=== PATIENT | male | born 1990 | race Caucasian/White ===

== ENCOUNTER 2016-10-03 04:51 | Emergency (ER) | payer OTHER ==
[2016-10-03] MEDS ORDERED: ONDANSETRON 4 MG/2 ML VIAL IVPUSH ONE (05:18)
[2016-10-03] MEDS ORDERED: morphine CARPU-JECT 4 MG/1 ML DISP.SYRIN IVPUSH ONE (05:18)
[2016-10-03] MEDS ORDERED: SODIUM CHLORIDE 1,000 ML IV ONE (05:18)
--- NOTE | 2016-10-03 09:19 | PDOC ---
Medical Decision Making - Medical Decision Making Initial HPI, A/P was done on a paper chart. The patient is now awake, shoulder has been reduced and he is well enough to be discharged to home. *DC/Admit/Observation/Transfer Diagnosis at time of Disposition: Dislocation of shoulder region Qualifiers: Encounter type: initial encounter Laterality: left Qualified Code(s): S43.005A - Unspecified dislocation of left shoulder joint, initial encounter - Discharge Dispostion Disposition: HOME Condition at time of disposition: Improved - Patient Instructions Printed Discharge Instructions: DI for Shoulder Dislocation Additional Instructions: Discharge Instructions: -Return to the ER with any worsening or concerning symptoms
[2016-10-03 09:39] VITALS: BP 137/65; PULSE 75
== END 2016-10-03 09:39 | disposition home or self-care (01) ==
LOC: JER 04:51
PROC: 0RSKXZZ Reposition Left Shoulder Joint, External Approach (ICD-10-PCS; principal; 2016-10-03)
PROC: 3E0337Z Introduction of Electrolytic and Water Balance Substance into Peripheral Vein, Percutaneous Approach (ICD-10-PCS; 2016-10-03)
PROC: 3E033NZ Introduction of Analgesics, Hypnotics, Sedatives into Peripheral Vein, Percutaneous Approach (ICD-10-PCS; 2016-10-03)
PROC: 3E033NZ Introduction of Analgesics, Hypnotics, Sedatives into Peripheral Vein, Percutaneous Approach (ICD-10-PCS; 2016-10-03)
DX: M24.312 Pathological dislocation of left shoulder, not elsewhere classified (principal)
CPT/HCPCS: 23650; 73030-TC-LT; 96361; 96374; 96375; 99281-25

== ENCOUNTER 2016-10-10 11:22 | Day surgery (SDC) | payer OTHER ==
[2016-10-03 14:34] VITALS: BMI 23.6
[2016-10-10] MEDS ORDERED: MIDAZOLAM HCL 2 MG/2 ML SINGLE DOSE VIAL ONE ×4 (11:32→13:00)
[2016-10-10] MEDS ORDERED: PROPOFOL 20 ML ONE (11:33)
[2016-10-10] MEDS ORDERED: DEXAMETHASONE SOD PHOSPHATE/PF 10 MG/ML SDV ONE (11:58)
[2016-10-10] MEDS ORDERED: ROPIVACAINE HCL 0.5% 30ML VIAL ONE (11:59)
[2016-10-10] MEDS ORDERED: ceFAZolin SODIUM 1 GM VIAL ONE (13:01)
[2016-10-10] MEDS ORDERED: ONDANSETRON 4 MG/2 ML VIAL IVPUSH PRN (13:17)
[2016-10-10] MEDS ORDERED: oxyCODONE HCL 5 MG TABLET PO PRN ×2 (13:17)
[2016-10-10] MEDS ORDERED: LACTATED RINGERS SOLUTION 1,000 ML IV SCH (13:30)
[2016-10-10] MEDS ORDERED: oxyCODONE HCL 5 MG TABLET ONE (15:29)
[2016-10-10 15:52] VITALS: PULSE 76
[2016-10-10 16:06] VITALS: BP 121/65; TEMP 98
--- NOTE | 2016-10-11 10:35 | OP ---
DATE OF OPERATION: 10/10/2016 PREOPERATIVE DIAGNOSIS: Left shoulder recurrent instability. POSTOPERATIVE DIAGNOSES: 1. Left shoulder recurrent instability. 2. Left shoulder extensive anterior-inferior glenoid labrum tear. 3. Left shoulder superior labral anterior-posterior tear. 4. Left shoulder loose body. 5. Left shoulder partial rotator cuff tear. OPERATIVE PROCEDURE: 1. Left shoulder anterior labral repair with capsulorrhaphy and anterior-superior capsular shift. 2. Left shoulder superior labral anterior-posterior tear repair, arthroscopic. 3. Left shoulder excision of loose body. 4. Left shoulder arthroscopic debridement of rotator cuff tear. SURGEON: Ismael Mehta MD CLOTH WINDING SUPERVISOR: LILO Hopson ANESTHESIA: Regional. COMPLICATIONS: None. ESTIMATED BLOOD LOSS: Minimal. INDICATIONS FOR PROCEDURE: The patient is a 26-year-old male with a history of multiple prior dislocations of his left shoulder. He is indicated for operative treatment. Risks, benefits, and alternatives were discussed with patient at length, including the possible risk of recurrent instability even after the surgery. He desired to proceed. PROCEDURE: After proper identification of patient and correct operative site, patient was given regional anesthesia by the anesthesiologist and brought to the operating room and placed into the beach-chair position with all points of contact well padded and in-line cervical position maintained throughout the procedure. Left upper extremity was prepped and draped in the usual sterile fashion. Preoperative examination under anesthesia showed full range of motion with significant anterior instability but no posterior instability or sulcus sign. Arthroscopy was performed in the glenohumeral joint first through a posterior portal. All portals were made with skin incision only and blunt dissection down to the joint capsule. Accessory portals were made anteriorly and superiorly. Glenohumeral joint was found to have significant chondral injury anteriorly and inferiorly but no evidence of bony Bankart. There was extensive tearing of the anterior and superior labrum from the [address] o[address] way to the 7 o'clock position. The labrum was significantly displaced and frayed. Debridement was performed extensively in this area, including the articular cartilage and any synovitis, and was prepared for repair by debriding the bony glenoid labrum to healthy bleeding bone. Some fraying of the posterior-superior labrum was also noted, but there was no detachment. Synovitis was noted in the area and was also debrided. Biceps tendon was intact, but the biceps anchor was unstable. A small undersurface rotator cuff tear of the supraspinatus was noted and this was debrided. This was less than 10% of the thickness. A loose body was found measuring 1 cm by 5 mm in the anterior aspect of the glenohumeral joint and this was removed. No other loose bodies were found in the axillary pouch, although there was some synovitis. Hill-Sachs lesion was also noted. At this point, repair of the anterior-inferior labrum as well as capsulorrhaphy was performed. This was done by passing 2 No. 2 FiberWire sutures through the anterior-inferior and anterior mid labrum as well as grabbing significant amounts of capsular tissue with each of these sutures. These were then shifted and repaired anteriorly and superiorly on to the labrum with PushLock anchors. This provided a secure stable bumper anteriorly and provided a capsular shift and capsulorrhaphy. A 3rd suture was placed superiorly to repair the superior labral portion of the tear and was also secured to the glenoid with a PushLock anchor. No further instability existed. Wounds were irrigated with saline and repaired using 5-0 nylon sutures. Sling was placed. Patient was reversed from anesthesia and brought to the recovery room in stable condition. Feliciano Brewer, the process assistant, was integral throughout the procedure. The procedure could not have been performed without a skilled operative process assistant. ISMAEL MEHTA M.D. [id number]
--- NOTE | 2016-10-12 14:57 | PATH ---
Surgical Pathology Report Patient Name: KENN KING [facility]. Rec. #: [id number] /Age/Gender: 1990 (Age: 26) / M Account: [id number] Location: [facility] Taken: 10/10/2016 Received: 10/10/2016 Reported: 10/12/2016 Physicians: Jonathon Martinez M.D. Specimen(s) Received LOOSE BODY LEFT SHOULDER Clinical History Left shoulder recurrent dislocations Final Diagnosis BONE AND SOFT TISSUE, LEFT SHOULDER, EXCISION: REACTIVE BONE WITH ATTACHED CARTILAGE AND SYNOVIUM CONSISTENT WITH LOOSE BODY. Electronically Signed Xander Blackwell M.D. Gross Description Received in formalin labeled "loose body left shoulder," is a 0.7 x 0.4 x 0.2 cm kennedy, irregular portion of hard tissue. The specimen is submitted in toto in one cassette, following decalcification. 10/11/201610/11/2016
== END 2016-10-10 16:00 | disposition home or self-care (01) ==
LOC: FASU 11:22
PROVIDERS: ATTEND Orthopaedic Surgery Hand Surgery
PROC: 0RQK4ZZ Repair Left Shoulder Joint, Percutaneous Endoscopic Approach (ICD-10-PCS; 2016-10-10)
PROC: 0RCK4ZZ Extirpation of Matter from Left Shoulder Joint, Percutaneous Endoscopic Approach (ICD-10-PCS; 2016-10-10)
PROC: 0LB24ZZ Excision of Left Shoulder Tendon, Percutaneous Endoscopic Approach (ICD-10-PCS; principal; 2016-10-10 13:32)
PROC: 0MM24ZZ Reattachment of Left Shoulder Bursa and Ligament, Percutaneous Endoscopic Approach (ICD-10-PCS; 2016-10-10 13:32)
DX: M24.412 Recurrent dislocation, left shoulder (principal); S43.432A Superior glenoid labrum lesion of left shoulder, initial encounter; X58.XXXA Exposure to other specified factors, initial encounter; Y93.9 Activity, unspecified; Y92.9 Unspecified place or not applicable; M75.102 Unspecified rotator cuff tear or rupture of left shoulder, not specified as traumatic; M24.012 Loose body in left shoulder; M24.112 Other articular cartilage disorders, left shoulder
CPT/HCPCS: 88304-TC; 88311-TC

== ENCOUNTER 2017-10-27 16:56 | Emergency (ER) | payer SELFPAY ==
[2017-10-27 17:02] VITALS: BP 119/84; PULSE 76; TEMP 98.2; BMI 22.8
--- NOTE | 2017-10-27 17:15 | PDOC ---
History of Present Illness - General Chief Complaint: Revisit,Wound Recheck Stated Complaint: ELBOW FRACTURE, RECAST Time Seen by Provider: 10/27/17 17:08 History Source: Patient Exam Limitations: No Limitations - History of Present Illness Initial Comments: 10/27/17 17:13 elbow injury 3 weeks ago, pt states he fell in [place] had fracture dislocation of elbow was placed in orthoglass splint. Pt states the splint became wet so he removed it and wants a re-cast placed. Occurred: reports: other (3 weeks ) Upper Extremity Pain Location: right: elbow Past History - Past Medical History Allergies/Adverse Reactions: Allergies Allergy/AdvReac Type Severity Reaction Status Date / Time No Known Drug Allergies Allergy Verified 10/27/17 17:02 Home Medications: Ambulatory Orders NK [No Known Home Medication] 10/03/16 Anemia: No Asthma: No (HAS USED INHALERS BUT DENIES ASTHMA) Cancer: No Cardiac Disorders: No CVA: No COPD: No CHF: No Dementia: No Diabetes: No GI Disorders: No Disorders: No HTN: No Hypercholesterolemia: No Liver Disease: No Seizures: No Thyroid Disease: No - Surgical History Abdominal Surgery: No Appendectomy: No Cardiac Surgery: No Cholecystectomy: No Lung Surgery: No Neurologic Surgery: No Orthopedic Surgery: No - Immunization History Immunization Up to Date: Yes - Suicide/Smoking/Psychosocial Hx Smoking Status: No Smoking History: Never smoked Number of Cigarettes Smoked Daily: 0 Hx Alcohol Use: No Drug/Substance Use Hx: No Hx Substance Use Treatment: No *Physical Exam - Vital Signs Last Vital Signs Temp Pulse Resp BP Pulse Ox 98.2 F 76 18 119/84 99 10/27/17 16:59 10/27/17 16:59 10/27/17 16:59 10/27/17 16:59 10/27/17 16:59 - Physical Exam General Appearance: Yes: Nourished, Appropriately Dressed HEENT: positive: EOMI, MARVIN Musculoskeletal: positive: Normal Inspection Extremity: positive: Normal Capillary Refill, Normal Inspection, Tender ( posterior elbow, decreased ROM due to stiffness and pain ) Integumentary: positive: Normal Color, Dry, Warm Neurologic: positive: assembler clip on sunglasses II-XII NML intact, Fully Oriented, Alert, Normal Mood/ Affect, Normal Response, Motor Strength 5/5 ED Treatment Course - RADIOLOGY Radiology Studies Ordered: Category Date Time Status ELBOW-RIGHT [RAD] Stat Radiology 10/27/17 17:11 Ordered Radiograph Interpretation: 10/27/17 19:31 old fracture proximal ulna Medical Decision Making - Medical Decision Making 10/27/17 17:14 cc: right elbow injury 3 weeks ago pt asking for an orthoglass splint will xray elbow pt states he has apt on saturday for orthopedist. nv intact skin warm no swelling 10/27/17 17:33 xray showing old fracture right elbow proximal ulna will place in sling ortho follow up saturday as planned pt agrees with plan all questions asked and answered *DC/Admit/Observation/Transfer Diagnosis at time of Disposition: Right elbow pain Elbow fracture, right Qualifiers: Encounter type: subsequent encounter Fracture type: closed Fracture healing: with routine healing Qualified Code(s): S42.401D - Unspecified fracture of lower end of right humerus, subsequent encounter for fracture with routine healing - Discharge Dispostion Disposition: HOME Condition at time of disposition: Good - Referrals - Patient Instructions Printed Discharge Instructions: How to Use a Sling Additional Instructions: use the sling while awake remove to sleep follow with the orthopedist on Saturday as planned - Post Discharge Activity
== END 2017-10-27 17:36 | disposition home or self-care (01) ==
LOC: JERFT 16:56
DX: S42.401D Unspecified fracture of lower end of right humerus, subsequent encounter for fracture with routine healing (principal); M25.521 Pain in right elbow; X58.XXXD Exposure to other specified factors, subsequent encounter; Y92.9 Unspecified place or not applicable; Y93.9 Activity, unspecified
CPT/HCPCS: 73070-TC-RT-FY; 99281-25